=== PATIENT | female | born 1990 | race Caucasian/White ===

== ENCOUNTER 2016-11-04 19:08 | Emergency (ER) | payer OTHER ==
[~2016-11-04 19:08] MED LIST: GOOD SENSE ASPI81 M3 PO; SPRINTEC1 TAB PO
[2016-11-04 19:51] LABS: BASOPHIL % 0.4 % (0-2); PLATELET COUNT 262 x10^3mcL (130-400)
[2016-11-04 19:55] LABS: RED CELL DISTRIBUTION WIDTH 14.6 % (11.5-14.5)
[2016-11-04 20:01] LABS: CALCIUM 8.9 mg/dL (8.5-10.1); CARBON DIOXIDE 26.2 mmol/L (21-32); CHLORIDE SERUM 108 mmol/L (98-107); GFR1 > 60 mL/min; GLUCOSE SERUM 109 mg/dL (74-106); POTASSIUM SERUM 3.7 mmol/L (3.5-5.1); SODIUM SERUM 144 mmol/L (136-145)
[2016-11-04 20:13] LABS: ALBUMIN 3.8 g/dL (3.4-5.0); ALKALINE PHOSPHATASE 53 U/L (46-116); ALT/SGPT 22 U/L (14-59); AST/SGOT 13 U/L (15-37); BILIRUBIN TOTAL 0.3 mg/dL (0.20-1.00); T4(THYROXINE) 8.2 ug/dL (4.7-13.3); TOTAL PROTEIN, SERUM 7.2 g/dL (6.4-8.2)
[2016-11-04 21:25] VITALS: BP 121/84
== END 2016-11-04 21:25 | disposition home or self-care (01) ==
LOC: ED 19:08
PROVIDERS: Emergency Medicine
DX: R07.89 Other chest pain (principal)
CPT/HCPCS: 80307; 83880

== ENCOUNTER 2018-04-08 19:21 | Emergency (ER) | payer OTHER ==
[2018-04-08 20:53] VITALS: BP 126/90
== END 2018-04-08 21:01 | disposition home or self-care (01) ==
LOC: ED 19:21
DX: T78.1XXA Other adverse food reactions, not elsewhere classified, initial encounter (principal); I47.1 Supraventricular tachycardia; Q21.0 Ventricular septal defect; I49.9 Cardiac arrhythmia, unspecified; X58.XXXA Exposure to other specified factors, initial encounter
CPT/HCPCS: J7512; Q0163